=== PATIENT | female | born 1955 | race Caucasian/White ===

== ENCOUNTER 2025-01-31 08:44 | Emergency (ER) | payer MEDICARE, OTHER, SELFPAY ==
[2025-01-31 08:50] VITALS: BP 175/88
[2025-01-31 09:12] VITALS: BP 152/80
--- NOTE | 2025-01-31 09:12 | ED.GENMED ---
History of Present Illness
General
Chief Complaint: Chest Pain
Source: patient
Time Seen by Provider: 01/31/25 09:00
History of Present Illness
History of Present Illness:
69-year-old female with past medical history of hypertension, GERD, hypothyroidism, previous breast cancer status post bilateral mastectomy in 2022, mild CAD, status post aortic valve replacement in 2021 presenting to the emergency department for
evaluation of approximately 3 days of a fluttering sensation in her chest accompanied with some mild discomfort and left arm pain with the fluttering/discomfort sensation described to be only lasting a couple of seconds, occurring multiple times per
day, occurs randomly, no exacerbating or alleviating factors and no other associated symptoms including exertional dyspnea, orthopnea, cough, hemoptysis, lower extremity edema, pleurisy. Patient denies any history of similar. No recent travel, no
known sick contacts, no recent illnesses. Patient follows with cardiology at [facility]. She does state that her coronary artery disease was described to be mild and she takes a daily 81 mg aspirin but did not take this yet today.
Past History
Past History
ED Past Medical History: CAD, Cancer, HTN, Hypercholesterolemia and Valvular disease
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
Social History
Tobacco: Non-smoker
Alcohol: None
Drug: None
Personal:
Living: alone
Review of Systems
Review of Systems
All Other Systems: ROS reviewed and negative except as documented in HPI and ROS
Phy Exam
Physical Exam
Physical Exam:
GENERAL: Alert , in no apparent distress
EYE: clear conjunctiva b/l
HEAD: NCAT
ENT: o/p clr, mmm.
CARDIAC: Regular rate and rhythm, systolic murmur at the right second intercostal space.
LUNGS: Clear breath sounds bilaterally, no acute respiratory distress, no wheezes/rales/rhonchi
ABDOMEN: Soft, without focal tenderness, no r/g, no cvat
NEUROLOGICAL: Alert and oriented
SKIN: Warm and dry, skin intact. No rashes
MUSCULOSKELETAL: No edema, well perfused.
PSYCH: Normal and appropriate interaction.
Scores
Heart Failure Risk
Heart Failure Risk Score: Not Applicable
Heart Score for Chest Pain Patients
STEMI patient?: No
History: Slightly or Non-Suspicious
ECG: Normal
Age: >/= 65 years
Risk Factors: >/= 3 Risk Factors or History of CAD
Troponin: </= Normal Limit
Heart Score for Chest Pain Patients: 4
Heart Score Risk: 20.3% MACE over next 6 weeks
Withdrawal Assessment of Alcohol
Withdrawal Assessment Completed?: Not applicable
Course
Orders/Labs/Results
Orders:
Orders
01/31/25 08:46
Electrocardiogram (*1) Urgent
Reason for Study: Chest Pain
EKG- Treatment ONCE
01/31/25 09:02
CR Chest - 2 Views Urgent
Comment:
Reason For Exam: chest pain, SOB
01/31/25 09:13
Complete Blood Count/With Diff Urgent
01/31/25 09:14
Comprehensive Metabolic Panel Urgent
NT-proBNP Urgent
PTT Urgent
Prothrombin Time Urgent
Troponin I Urgent
Abnormal Lab Results
01/31/25 01/31/25
09:13 09:14
RBC 4.17 L 10^6/uL
(4.20-5.40)
MCH 33.6 H pg
(27.0-31.0)
Absolute Lymphs (auto) 1.0 L 10^3/uL
(1.2-3.4)
Monocytes % 12.3 H %
(1.7-9.3)
Eosinophils % 10.0 H %
(0-6)
Sodium 132 L mmol/L
(135-145)
BUN 23 H mg/dl
(7-17)
Glucose 176 H mg/dl
(70-99)
AST 37 H U/L
(14-36)
01/31/25 09:13
01/31/25 09:14
Vital Signs
Initial and Last Documented VS:
Initial Vital Signs
Temp Pulse Resp BP Pulse Ox
98.6 F 97 18 175/88 97
01/31/25 08:50 01/31/25 08:50 01/31/25 08:50 01/31/25 08:50 01/31/25 08:50
Last Documented Vital Signs
Temp Pulse Resp BP Pulse Ox
98.6 F 78 13 128/81 97
01/31/25 08:50 01/31/25 10:45 01/31/25 10:45 01/31/25 10:00 01/31/25 10:30
MDM/Problems Addressed
Differential Diagnosis Includes:
- Cardiac arrhythmia
- ACS
- PE also considered given patient's history of cancer and the chest discomfort however no other symptoms would be suggestive of PE given lack of cough/pleurisy
- Musculoskeletal etiology
- Myocarditis/pericarditis
- Renal dysfunction
- Less concern for infectious etiology
MDM/Problems Addressed:
69-year-old female presenting to the ER for evaluation of 3 days of intermittent palpitations lasting only a few seconds and accompanied with some chest discomfort, arrives here symptom-free. Significant cardiac history for previous aortic valve
replacement as well as mild CAD manage aspirin, antihypertensives and cholesterol medications. EKG done in triage shows normal sinus rhythm however there are peaked T waves which patient reports to me she believes she has had in the past. Will
check labs, chest x-ray imaging and keep patient on telemetry. Disposition pending.
Chronic conditions affecting care: HTN and CAD
*Radiology
Radiology exam reviewed: preliminary read by ED provider (Normal chest x-ray)
*Pulse Oximetry
SaO2: 97
Oxygen Mode of Delivery: Room air
Patient hypoxic: no
*EKG
Heart Rate: 90
Rate: normal
Rhythm: sinus
Left Hand: normal axis
Ischemia: other (Peaked T waves)
*Conditioning Yard Supervisor Interpretation
Rate: normal
Heart Rate: 88
Rhythm: sinus
*Critical Care Note
Total Time (30-74mins, 75-104mins- exclusive of procedures): Not Applicable
Patient Management
Social determinants of health affecting care: Living situation and Strong social support
Escalation/DeEscalation of care consider admission/obs:
Patient's labs and imaging are all reassuring. Her blood pressure has significantly improved to 126/81 at time of my reevaluation and patient reports that she remains asymptomatic. Patient did express to me that over the last few months she has
been experiencing increased stress and anxiousness related to the passing of her ex- noting that her children have been having to deal with her state and they have been talking about it which seems to be causing her increased stress due to
him not having a living will and the patient's children having a lot of stress over this situation. At this time I do think it is reasonable for patient to continue with outpatient management and patient agrees. She will contact her air traffic supervisor
at [place] tomorrow for a follow-up visit. Patient notes that she was also given a prescription for an echocardiogram to be done as an outpatient by her air traffic supervisor on her last visit 2 months ago. She is aware of return precautions to the ER,
stable for discharge.
ED Attending Note
-
Portions of this chart may have been created with voice recognition software.� Occasional wrong word or��sound alike� substitutions may have occurred due to the inherent limitations of voice recognition software.
Discharge Plan
Departure
Patient Disposition: Home (Routine Discharge)
Date of Disposition: 01/31/25
Time of Disposition: 10:12
Patient with high blood pressure during this ER visit?: Yes
Discharge Problem:
Palpitations
Instructions: Palpitations - ED discharge instructions
Referrals:
Marc Hargrove DO [Family Provider, Family Practice]
Interventions
Interventions:
*Risk Screen - Suicide Last Done: 01/31/25 08:54
*General Assessment Last Done: 01/31/25 09:15
*Neglect/Abuse Screening Last Done: 01/31/25 08:54
*ED- Fall Risk Assessment Last Done: 01/31/25 09:15
*ED COVID-19 Vaccine History Last Done: 01/31/25 09:15
*Nursing Disposition Last Done: 01/31/25 10:59
ED- Cardiac Assessment Last Done: 01/31/25 09:19
Discharge Date and Time
Discharge Date/Time: 01/31/25 11:00
Print Language: BAHAMIAN
[2025-01-31 09:15] VITALS: BMI 18.1
[2025-01-31 09:28] LABS: % Basophils 1.3 % (0-2); % Immature Granulocytes 0.4 % (0-0.5); % Lymphocytes 21.5 % (20.5-51.1); % Monocytes 12.3 % (1.7-9.3); % Neutrophils 54.5 % (42.2-75.2); Absolute Basophils 0.1 10^3/uL (0-0.2); Absolute Eosinophils 0.5 10^3/uL (0-0.7); Absolute Monocytes 0.6 10^3/uL (0.1-0.6); Absolute Neutrophils 2.6 10^3/uL (1.4-6.5); Mean Corp Hgb Conc. 35.9 g/dL (33.0-37.0); Mean Corpuscular Hgb 33.6 pg (27.0-31.0); Mean Corpuscular Volume 93.5 fL (81.0-99.0); Mean Platelet Volume 9.8 fL (7.4-10.4); Nucleated Red Blood Cells % 0 %; Platelet Count 208 10^3/uL (130-400); Red Blood Cell Count 4.17 10^6/uL (4.20-5.40); Red Cell Dist. Width 13.5 % (11.5-14.5); White Blood Cell Count 4.8 10^3/uL (4.8-10.8)
[2025-01-31 09:38] LABS: APTT 30.4 Sec (23.4-35.0); INR 0.94; PT 12.9 Sec (11.4-14.6)
[2025-01-31 09:52] LABS: ALT (SGPT) 31 U/L (0-35); AST (SGOT) 37 U/L (14-36); Albumin 4.6 g/dl (3.5-5.0); Alkaline Phosphatase 100 U/L (38-126); Blood Urea Nitrogen 23 mg/dl (7-17); Carbon Dioxide 26 mmol/L (22-30); Chloride 99 mmol/L (98-107); Estimated Creatinine Clearance 56 ml/min; Glucose 176 mg/dl (70-99); Potassium 4.2 mmol/L (3.5-5.1); Sodium 132 mmol/L (135-145); Total Bilirubin 0.7 mg/dl (0.2-1.3); Total Protein 7.3 g/dl (6.3-8.2); eGFR > 60.00
[2025-01-31 10:00] VITALS: BP 128/81
[2025-01-31 10:05] LABS: NT-proBNP 556 pg/ml; Troponin I < 0.012 ng/ml
== END 2025-01-31 11:00 | disposition home or self-care (01) ==
LOC: EMR 08:44
PROVIDERS: Physician Assistant Medical; EMERGENCY PHYSICIAN Emergency Medicine; FAMILY PHYSICIAN Family Medicine; OTHER PHYSICIAN Internal Medicine Cardiovascular Disease
DX: R00.2 Palpitations (principal); I10 Essential (primary) hypertension; E03.9 Hypothyroidism, unspecified; E78.00 Pure hypercholesterolemia, unspecified; I25.10 Atherosclerotic heart disease of native coronary artery without angina pectoris; Z79.82 Long term (current) use of aspirin; Z95.2 Presence of prosthetic heart valve
CPT/HCPCS: 99285; 71046; 80053; 83880; 84484; 85025; 85610; 85730; 93005